=== PATIENT | female | born 1975 | race Caucasian/White ===

== ENCOUNTER 2016-12-26 19:13 | Emergency (ER) | payer OTHER ==
[~2016-12-26] VITALS: Ht 165.1 cm; Wt 102.1 kg
[2016-12-26 19:53] LABS: BASO # 0.1 10*3/uL (0.0-0.1); BASO % 0.7 % (0.0-1.0); EOS # 0.2 10*3/uL (0.0-0.4); EOS % 2.5 % (1.0-4.0); HEMATOCRIT 40.5 % (37.0-47.0); HEMOGLOBIN 13.8 g/dl (12.0-16.0); LYMPH # 2.8 10*3/uL (1.3-4.4); LYMPH % 31.3 % (27.0-41.0); MEAN CORPUSCULAR HGB CONC 34.1 g/dl (33.0-37.0); MEAN PLATELET VOLUME 9.8 fl (9.6-12.3); MONO # 0.7 10*3/uL (0.1-1.0); MONO % 8.2 % (3.0-9.0); NEUT % 57.1 % (47.0-73.0); PLATELET COUNT AUTOMATED 283 10*3/uL (130-400); RED BLOOD COUNT 4.45 10*6/uL (4.10-5.10); RED CELL DISTRI WIDTH 13.5 % (0-14.5); WHITE BLOOD COUNT 8.8 10*3/uL (4.8-10.8)
[2016-12-26 20:04] LABS: INTERNATIONAL NORM RATIO 0.9 (2.0-3.5); PROTHROMBIN TIME 9.9 SECONDS (9.0-12.4)
[2016-12-26 20:11] LABS: ALBUMIN 3.6 gm/dl (3.1-4.5); ALKALINE PHOSPHATASE 55 U/L (45-117); BILIRUBIN, TOTAL 0.3 mg/dl (0.2-1.0); BUN 11 mg/dl (7-24); CARBON DIOXIDE 24 mmol/L (21-32); CHLORIDE 106 mmol/L (98-107); EST GLOM FILT AFRICAN AMERICAN > 60 ml/min; GLUCOSE 87 mg/dL (65-99); MAGNESIUM 2.1 mg/dL (1.5-2.1); POTASSIUM 3.6 mmol/L (3.5-5.1); SGOT/AST 17 IU/L (3-35); SGPT/ALT 19 U/L (12-78); SODIUM 142 mmol/L (136-145); TOTAL PROTEIN 6.8 gm/dL (6.4-8.2)
[2016-12-26 20:12] LABS: TROPONIN I < 0.015 ng/ml (<0.045)
== END 2016-12-26 21:29 | disposition left against medical advice (07) ==
LOC: ED 19:13
PROVIDERS: Emergency Medicine
DX: R07.9 Chest pain, unspecified (principal); R42 Dizziness and giddiness; R11.0 Nausea; F17.200 Nicotine dependence, unspecified, uncomplicated

== ENCOUNTER → 2017-07-08 | Outpatient (CLI) | payer OTHER | END | disposition home or self-care (01) | LOC: US 10:00 | DX: R10.84 Generalized abdominal pain (principal); R10.2 Pelvic and perineal pain ==

== ENCOUNTER → 2018-10-04 | Outpatient (CLI) | payer OTHER | END | disposition home or self-care (01) | LOC: RAD 15:30 | DX: M47.817 Spondylosis without myelopathy or radiculopathy, lumbosacral region (principal); M54.16 Radiculopathy, lumbar region; M54.6 Pain in thoracic spine; M79.604 Pain in right leg; M79.605 Pain in left leg; M25.551 Pain in right hip; M25.552 Pain in left hip ==

== ENCOUNTER → 2019-05-04 | Outpatient (CLI) | payer OTHER ==
[~2019-05-04] MED LIST: PROVENTIL HFA6.7 GM INH
== END | disposition home or self-care (01) ==
LOC: RAD 17:14
DX: R06.02 Shortness of breath (principal); R05 Cough; R07.9 Chest pain, unspecified; Z87.891 Personal history of nicotine dependence

== ENCOUNTER → 2019-05-10 | Outpatient (CLI) | payer OTHER ==
--- NOTE | ~2019-05-10 | ST ---
[place], [place] EXERCISE STRESS TEST REPORT NAME: KALYN DIAZ [facility] #: [id number] UNIT #: [id number] ROOM: DOCTOR: JIM ESTRADA MD BIRTHDATE: [birth year] DOS: PHARMACOLOGICAL NUCLEAR STRESS TEST REASON FOR TESTING: Atypical chest pain. FINDINGS: Baseline EKG, normal sinus rhythm with poor R-wave progression, otherwise normal EKG. PROCEDURE: The patient received a rapid infusion of regadenoson 0.4 mg IV followed by saline flush. The patient experienced dyspnea symptoms. There were no EKG changes. There was an appropriate heart rate response to the infusion. Isotope was injected 40 seconds later. IMPRESSION: Well tolerated pharmacological stress test. Please see the separate imaging report for further details of the stress test results. Jim Estrada MD CM:STRESS:EXERCISE STRESS TEST REPORT [id number] JIM ESTRADA MD
--- NOTE | 2019-05-10 08:18 | NUR ---
INFORMED CONSENT OBTAINED FOR A LEXISCAN STRESS TEST WITH DR. ESTRADA. RESTING EKG SINUS SCOTT-NSR, HT RT OF 65, WITH A BP OF 122/70. SPO2 97% VIA RA WITH CLEAR BS. COMPLETED ONE MINUTE OF A LEXISCAN PROTOCOL RECEIVING LEXISCAN 0.4 MG OVER 10 SECONDS. DEVELOPED SOB AND CHEST TIGHTNESS THAT WAS RELIEVED IN RECOVERY. HAD A PEAK HT RT OF 104, WITH A BP OF 130/74. LAST RECOVERY HT RT OF 89, WITH A BP OF 128/82. AWAITING NUCLEAR IMAGING IN STABLE CONDITION.
== END | disposition home or self-care (01) ==
LOC: CARD 01:06
DX: R55 Syncope and collapse (principal); R53.81 Other malaise

== ENCOUNTER → 2019-05-24 | Outpatient (CLI) | payer OTHER ==
--- NOTE | ~2019-05-24 | PF ---
[place], [place] PULMONARY FUNCTION TEST [id number] UNIT #: [id number] ROOM: DOCTOR: CECY ANDINO MD,AMANDA BIRTHDATE: [birth year] DOS: 05/24/2019 SPIROMETRY BRONCHODILATOR TEST TEST ORDERED BY: Vangie Angel. HISTORY: A 43-year-old female, height of 65 inches, weight of 290 pounds. BMI 48.3. The patient reported symptoms of shortness of breath with productive cough, frequent wheezing, active tobacco use reported as 3 packs of cigarettes per day. SPIROMETRY: The FVC 2.65 liters or 78% predicted value. The FVC 2.61 liters, 78% predicted value, FEV1 of 2.19 liters as 71% predicted value. 23% improvement occurred post-bronchodilator in FVC and 32% of FEV1. FEV1/FVC ratio recorded as 83%. Flow volume loop was noted suggestive of reversible obstructive lung disease. FINAL IMPRESSION: Current test noted finding consistent with bronchial asthma. Clinical correlation would be advised. AMANDA SAM MD CM:PFREPORT:PULMONARY FUNCTION TEST [id number] AMANDA ANDINO MD
== END | disposition home or self-care (01) ==
LOC: CP 07:18
DX: R06.02 Shortness of breath (principal)

== ENCOUNTER 2020-08-20 14:00 | Emergency (ER) | payer OTHER ==
[~2020-08-20] VITALS: Ht 165.1 cm; Wt 86.2 kg
[2020-08-20 14:30] LABS: BASO # 0.1 10*3/uL (0.0-0.1); BASO % 0.8 % (0.0-1.0); EOS # 0.3 10*3/uL (0.0-0.4); EOS % 3.3 % (1.0-4.0); HEMATOCRIT 42.4 % (37.0-47.0); LYMPH # 2.4 10*3/uL (1.3-4.4); LYMPH % 30.6 % (27.0-41.0); MEAN CELL VOLUME 93.4 fl (81.0-99.0); MEAN CORPUSCULAR HGB 30.6 pg (27.0-31.0); MEAN CORPUSCULAR HGB CONC 32.8 g/dl (33.0-37.0); MEAN PLATELET VOLUME 9.8 fl (9.6-12.3); MONO # 0.8 10*3/uL (0.1-1.0); MONO % 9.4 % (3.0-9.0); NEUT # 4.4 10*3/uL (2.3-7.9); NEUT % 55.6 % (47.0-73.0); PLATELET COUNT AUTOMATED 308 10*3/uL (130-400); RED BLOOD COUNT 4.54 10*6/uL (4.10-5.10); RED CELL DISTRI WIDTH 12.9 % (0-14.5)
[2020-08-20 14:42] LABS: ACT PARTIAL THROMBO TIME 25.2 SECONDS (20.0-32.1); INTERNATIONAL NORM RATIO 0.9 (2.0-3.5)
[2020-08-20 14:48] LABS: ALBUMIN 3.5 gm/dl (3.1-4.5); ALKALINE PHOSPHATASE 76 U/L (45-117); BUN 16 mg/dl (7-24); CHLORIDE 108 mmol/L (98-107); CREATININE 0.76 mg/dL (0.55-1.02); LIPASE 132 U/L (73-393); POTASSIUM 3.9 mmol/L (3.5-5.1); SGOT/AST 15 IU/L (3-35); SGPT/ALT 31 U/L (12-78); SODIUM 140 mmol/L (136-145); TOTAL PROTEIN 7.2 gm/dL (6.4-8.2)
[2020-08-20 14:56] LABS: TROPONIN I < 0.015 ng/ml (<0.045)
[2020-08-20] MEDS ORDERED: PREDNISONE50 MG PO (16:23)
== END 2020-08-20 16:55 | disposition home or self-care (01) ==
LOC: ED 14:00
PROVIDERS: Emergency Medicine
DX: M79.604 Pain in right leg (principal); J45.909 Unspecified asthma, uncomplicated; Z79.899 Other long term (current) drug therapy